=== PATIENT | female | born 1975 | race Caucasian/White ===

== ENCOUNTER 2021-04-06 11:55 | Outpatient (CLI) | payer OTHER, SELFPAY ==
[~2021-04-06] VITALS: Ht 162.6 cm; Wt 79.4 kg
== END 2021-04-06 23:59 | disposition home or self-care (01) ==
LOC: MLB 11:55 → EDSTATUS 04-09 11:40
PROVIDERS: ATTEND Internal Medicine Gastroenterology
DX: Z12.11 Encounter for screening for malignant neoplasm of colon (principal); R13.10 Dysphagia, unspecified; Z20.822 Contact with and (suspected) exposure to COVID-19; Z53.8 Procedure and treatment not carried out for other reasons